=== PATIENT | female | born 2000 | race Caucasian/White ===

== ENCOUNTER 2021-04-10 13:44 | Emergency (ER) | payer OTHER ==
[~2021-04-10 13:44] MED LIST: EXPECTORANT200 MG PO; TESSALON PERLE100 MG PO; ZOFRAN4 MG PO
[2021-04-10] MEDS ORDERED: SUDAFED 60 MG T60 MG PO (15:00)
[2021-04-10] MEDS ORDERED: FLONASE 0.05% N16 GM (15:00)
[2021-04-10] MEDS ORDERED: ZYRTEC10 MG PO (15:00)
== END 2021-04-10 15:08 | disposition home or self-care (01) ==
LOC: ER1 13:44
DX: J02.9 Acute pharyngitis, unspecified (principal); F17.290 Nicotine dependence, other tobacco product, uncomplicated; Z20.822 Contact with and (suspected) exposure to COVID-19
CPT/HCPCS: 87081; 87880; 99283; U0003